=== PATIENT | female | born 1995 | race Caucasian/White ===

== ENCOUNTER 2019-12-14 06:58 | Day surgery (SDC) | payer BC ==
[~2019-12-14] VITALS: Ht 165.1 cm; Wt 99.8 kg
[~2019-12-14 06:58] MED LIST: METF500T17 PO
[2019-12-14] MEDS ORDERED: LACTATED RINGERS 1,000 ML IV SCH (07:36)
[2019-12-14 07:44] VITALS: BP 119/82
[2019-12-14] MEDS ORDERED: SCOPOLAMINE 1MG PATCH TD SCH (08:00)
[2019-12-14 08:09] LABS: HCG UR SG 1.023 (1.003-1.030)
[2019-12-14 08:41] LABS: BASOPHILS # (AUTO) 0.05 x10^3/uL (0-0.1); BASOPHILS % (AUTO) 1 % (0-1); EOSINOPHILS # (AUTO) 0.16 x10^3/uL (0-0.4); EOSINOPHILS % (AUTO) 2 % (1-7); LYMPHOCYTES # (AUTO) 2.51 x10^3/uL (1-3.4); LYMPHOCYTES % (AUTO) 28 % (22-44); MD NO; MEAN CORPUSCULAR HEMOGLOBIN 29.7 pg (27.0-34.8); MEAN CORPUSCULAR HGB CONC 33.3 g/dL (32.4-35.8); MEAN CORPUSCULAR VOLUME 89.3 fL (80-100); MEAN PLATELET VOLUME 8.9 fL (7.4-10.4); MONOCYTES # (AUTO) 0.57 x10^3/uL (0.2-0.8); MONOCYTES % (AUTO) 6 % (2-9); NEUTROPHILS # (AUTO) 5.85 x10^3/uL (1.8-6.8); NEUTROPHILS % (AUTO) 64 % (42-75); PLATELET COUNT 315 x10^3/uL (130-400); RED BLOOD COUNT 5.11 x10^6/uL (3.82-5.3); RED CELL DISTRIBUTION WIDTH 13.9 % (9.6-15.2)
[2019-12-14 08:56] LABS: ALANINE AMINOTRANSFERASE 52 U/L (12-78); ALBUMIN 3.8 g/dL (3.4-5.0); ANION GAP 5 mmol/L (5-15); CALCIUM 9.1 mg/dL (8.5-10.1); CHLORIDE 111 mmol/L (98-107); CREATININE 0.86 mg/dL (0.55-1.02)
[2019-12-14 08:58] LABS: ALKALINE PHOSPHATASE 84 U/L (45-117); BILIRUBIN,TOTAL 0.3 mg/dL (0.2-1.0)
[2019-12-14] MEDS ORDERED: FENTANYL PF 250 MCG/5ML ONE (10:27)
[2019-12-14] MEDS ORDERED: MIDAZOLAM 1 MG/ML, 2ML ONE (10:27)
[2019-12-14] MEDS ORDERED: KETOROLAC 30 MG/1 ML ONE (10:28)
[2019-12-14] MEDS ORDERED: PROPOFOL 10 MG/ML, 20ML ONE (10:32)
[2019-12-14] MEDS ORDERED: SILVER NITRATE STICK TP ONE (11:39)
[2019-12-14] MEDS ORDERED: ACETAMINOPHEN 325 MG TABLET PO PRN (12:30)
[2019-12-14] MEDS ORDERED: MEPERIDINE/PF 25MG/ML,1ML IVPush PRN (12:30)
[2019-12-14] MEDS ORDERED: LABETALOL 5MG/ML, 20ML IV PRN (12:30)
[2019-12-14] MEDS ORDERED: MORPHINE SULFATE 4 MG/ML, 1ML IVPush PRN (12:30)
[2019-12-14] MEDS ORDERED: HALOPERIDOL 5 MG/ML IV PRN (12:30)
[2019-12-14] MEDS ORDERED: PROMETHAZINE 25 MG/ML, 1ML IV PRN (12:30)
[2019-12-14] MEDS ORDERED: hydrALAzine 20 MG/ML, 1ML IV PRN (12:30)
[2019-12-14] MEDS ORDERED: ONDANSETRON 2MG/ML, 2ML IV PRN (12:30)
[2019-12-14] MEDS ORDERED: OXYcodone 5 MG/5 ML ORAL.SOL UDC PO PRN (12:30)
[2019-12-14] MEDS ORDERED: FENTANYL PF 100 MCG/2ML ONE (13:18)
[2019-12-14] MEDS ORDERED: HYDROmorphone 1 MG/ML, 1ML INJ ONE ×2 (13:18→13:40)
[2019-12-14] MEDS: FENTANYL PF 100 MCG/2ML IV PRN ×2 (13:22→13:38)
[2019-12-14] MEDS: HYDROmorphone 2 MG/ML, 1ML IVPush PRN ×4 (13:27→13:49)
[2019-12-14] MEDS ORDERED: MEPERIDINE/PF 25MG/ML,1ML ONE (13:54)
[2019-12-14] MEDS ORDERED: ONDANSETRON 2MG/ML, 2ML ONE (15:49)
[2019-12-14] MEDS ORDERED: DEXAMETHASONE 4 MG/ML, 1ML ONE (15:49)
== END 2019-12-14 16:40 | disposition home or self-care (01) ==
LOC: OUT 06:58
PROVIDERS: ATTEND Obstetrics & Gynecology Gynecology
DX: N93.9 Abnormal uterine and vaginal bleeding, unspecified (principal); N84.0 Polyp of corpus uteri; Q51.810 Arcuate uterus; E11.9 Type 2 diabetes mellitus without complications; Z79.84 Long term (current) use of oral hypoglycemic drugs; Z79.899 Other long term (current) drug therapy; Z88.0 Allergy status to penicillin; Z88.1 Allergy status to other antibiotic agents; Z88.2 Allergy status to sulfonamides; Z88.8 Allergy status to other drugs, medicaments and biological substances; Z90.49 Acquired absence of other specified parts of digestive tract
CPT/HCPCS: 58558; 80053; 81025; 82962; 85025; 88305; J1100; J1170; J1885; J2175; J2250; J2405; J2704; J3010; J7120